=== PATIENT | female | born 1960 | race American Indian/Alaskan Native ===

== ENCOUNTER 2019-09-18 14:34 | Emergency (ER) | payer SELFPAY ==
--- NOTE | 2019-09-18 17:11 | XRay Report ---
CHEST 1 VIEW 1654 INDICATION / CLINICAL INFORMATION: Chest pressure and shortness of breath, history of hypertension. COMPARISON: None available. FINDINGS: SUPPORT DEVICES: None HEART / MEDIASTINUM: No significant abnormality. LUNGS / PLEURA: No significant pulmonary or pleural abnormality. No pneumothorax. ADDITIONAL FINDINGS: No significant additional findings. IMPRESSION: No significant acute abnormality Signer Name: Ayo Dixon MD Signed: 09/18/2019 5:06 PM Workstation Name: [id number]
[2019-09-18] MEDS ORDERED: ONDANSETRON 4 MG/2 ML INJ IV ONE (18:02)
[2019-09-18] MEDS ORDERED: SODIUM CHLORIDE 0.9% 1000 ML 1,000 ML IV ONE (18:02)
[2019-09-18] MEDS ORDERED: MORPHINE 2 MG/1 ML INJ IV ONE (18:02)
--- NOTE | 2019-09-18 18:06 | Emergency Department Report ---
ED Abdominal Pain HPI - General Chief Complaint: Chest Pain Stated Complaint: CHEST PAIN,ABD PAIN Time Seen by Provider: 09/18/19 17:38 Source: patient Mode of arrival: Ambulatory Limitations: No Limitations - History of Present Illness Initial Comments: 59-year-old female history of hypertension presents to ED with abdominal pain since yesterday. Patient states pain is periumbilical and radiates upward into her chest. She reports nausea and vomiting, denies diarrhea. Denies dysuria, reports urinary frequency. Patient denies any sick contacts. States pain is worse with eating. Unable to keep anything down. MD Complaint: abdominal pain -: Last night Location: periumbilical Radiation: epigastric, chest Migration to: no migration Severity: moderate Quality: cramping Consistency: constant Improves With: nothing Worsens With: eating, vomiting Associated Symptoms: nausea, vomiting. denies: diarrhea, fever, dysuria - Related Data Previous Rx's Medication Instructions Recorded Last Taken Type Dicyclomine [Bentyl] 20 mg PO QID PRN #20 tablet 09/18/19 Unknown Rx Ondansetron [Zofran Odt] 4 mg PO Q8HR PRN #20 tab.rapdis 09/18/19 Unknown Rx Allergies Allergy/AdvReac Type Severity Reaction Status Date / Time No Known Allergies Allergy Unverified 09/18/19 14:42 ED Review of Systems ROS: Stated complaint: CHEST PAIN,ABD PAIN Other details as noted in HPI Comment: All other systems reviewed and negative Constitutional: denies: chills, fever Gastrointestinal: abdominal pain, nausea, vomiting. denies: diarrhea ED Past Medical Hx - Past Medical History Previous Medical History?: Yes Hx Hypertension: Yes - Surgical History Past Surgical History?: No - Social History Smoking Status: Never Smoker Substance Use Type: None - Medications Home Medications: Home Medications Medication Instructions Recorded Confirmed Last Taken Type Dicyclomine [Bentyl] 20 mg PO QID PRN #20 tablet 09/18/19 Unknown Rx Ondansetron [Zofran Odt] 4 mg PO Q8HR PRN #20 tab.rapdis 09/18/19 Unknown Rx ED Physical Exam - General Limitations: No Limitations General appearance: alert, in no apparent distress - Head Head exam: Present: atraumatic, normocephalic - Eye Eye exam: Present: normal appearance, EOMI - ENT ENT exam: Present: mucous membranes moist - Neck Neck exam: Present: normal inspection - Respiratory Respiratory exam: Present: normal lung sounds bilaterally. Absent: respiratory distress - Cardiovascular Cardiovascular Exam: Present: regular rate, normal rhythm - GI/Abdominal GI/Abdominal exam: Present: soft, distended (mildy), tenderness (periumbical, suprapubic ) - Extremities Exam Extremities exam: Present: normal inspection - Neurological Exam Neurological exam: Present: alert, oriented X3 - Psychiatric Psychiatric exam: Present: normal affect, normal mood - Skin Skin exam: Present: warm, dry, intact, normal color ED Course Vital Signs 09/18/19 09/18/19 09/18/19 14:51 19:54 19:55 Temperature 98.4 F Pulse Rate 86 Respiratory 16 18 Rate Blood Pressure 153/92 O2 Sat by Pulse 99 96 Oximetry 09/18/19 09/18/19 09/18/19 20:01 20:31 20:49 Temperature Pulse Rate Respiratory Rate Blood Pressure 182/77 187/83 137/58 O2 Sat by Pulse 93 91 98 Oximetry 09/18/19 09/18/19 09/18/19 21:01 21:15 21:31 Temperature Pulse Rate Respiratory Rate Blood Pressure 174/85 148/72 176/92 O2 Sat by Pulse 91 91 94 Oximetry 09/18/19 09/18/19 21:45 22:00 Temperature Pulse Rate Respiratory Rate Blood Pressure 168/87 141/118 O2 Sat by Pulse 97 94 Oximetry ED Medical Decision Making - Lab Data Result diagrams: 09/18/19 18:06 09/18/19 18:06 - EKG Data -: EKG Interpreted by Ms EKG shows normal: sinus rhythm, axis, intervals, QRS complexes, ST-T waves Rate: normal - EKG Data Interpretation: no acute changes - Radiology Data Radiology results: report reviewed, image reviewed - Medical Decision Making 59-year-old female with abdominal pain radiating up into the chest. EKG and troponin normal. Vital signs stable. Patient feeling much better following IV fluids, morphine, and Zofran. Labs unremarkable. CT abdomen and pelvis was performed that shows no acute abnormalities. Patient is feeling much better this time and feels comfortable with discharge home. Prescriptions given. Outpatient follow-up advised. Return precautions given. - Differential Diagnosis gastroenteritis, appendicitis, pancreatitis, gastritis Critical care attestation.: If time is entered above; I have spent that time in minutes in the direct care of this critically ill patient, excluding procedure time. ED Disposition Clinical Impression: Acute abdominal pain Disposition: DC-01 TO HOME OR SELFCARE Is pt being admited?: No Condition: Stable Instructions: Abdominal Pain (ED) Prescriptions: Dicyclomine [Bentyl] 20 mg PO QID PRN #20 tablet PRN Reason: abdominal pain Ondansetron [Zofran Odt] 4 mg PO Q8HR PRN #20 tab.rapdis PRN Reason: Vomiting Referrals: PRIMARY CARE, [Primary Care Provider] - 3-5 Days [facility] [Provider Group] - 3-5 Days Time of Disposition: 21:52
[2019-09-18 18:15] LABS: Basophils # (Auto) 0.1 K/mm3 (0.0-0.1); Basophils % (Auto) 1.2 % (0.0-1.8); Hematocrit 43.4 % (30.3-42.9); Hemoglobin 14.5 gm/dl (10.1-14.3); Lymphocytes # (Auto) 1.7 K/mm3 (1.2-5.4); Lymphocytes % (Auto) 16.5 % (13.4-35.0); Mean Corpuscular HGB Conc 33 % (30-34); Mean Corpuscular Volume 92 fl (79-97); Monocytes # (Auto) 0.3 K/mm3 (0.0-0.8); Monocytes % (Auto) 2.6 % (0.0-7.3); Platelet Count 225 K/mm3 (140-440); Red Blood Count 4.71 M/mm3 (3.65-5.03); Red Cell Distribution Width 12.9 % (13.2-15.2)
[2019-09-18 18:36] LABS: BUN/Creatinine Ratio 17; Blood Urea Nitrogen 12 mg/dL (7-17); Hemolysis Index 68
[2019-09-18 19:20] LABS: Alanine Aminotransferase 20 units/L (7-56); Albumin 4.5 g/dL (3.9-5)
[2019-09-18 19:21] LABS: Bilirubin,Direct < 0.2 mg/dL (0-0.2)
--- NOTE | 2019-09-18 20:26 | Cat Scan Report ---
CT ABDOMEN AND PELVIS WITH CONTRAST INDICATION: Abdominal pain, vomiting CONTRAST: Without IV COMPARISON: None available. All CT scans at this location are performed using CT dose reduction for ALARA by means of automated e xposure control. NOTE: Resolution is decreased and artifact is introduced by the patient's size. FINDINGS: Lung bases show mild diffuse increased interstitial markings suggesting diffuse mild pulmon abdulkadir edema. No areas of consolidation are seen. Heart is not significantly enlarged. No pneumoperitoneum is seen. No significant abdominal wall herniation is noted. Fatty infiltration of the liver is seen with mild enlargement. Liver measures 18.4 cm in diameter. No focal lesions are ob vious. Spleen appears within normal limits. No urinary obstructive changes are seen. Pancreas and umesh e ducts appear within normal limits. Multiple gallstones are seen in a contracted gallbladder without definite inflammation. No lymphadenopathy is seen. Several uterine leiomyomata are noted measuring u p to 8.2 cm. No free fluid is seen. No adnexal masses are noted. No evidence of bowel obstruction is seen. Appendix appears within normal limits. No focal inflammatory changes are seen. IMPRESSION: 1. No acute abnormalities are seen 2. Cholelithiasis 3. Possible mild interstitial pulmonary edema Signer Name: Ayo Dixon MD Signed: 09/18/2019 8:22 PM Workstation Name: [id number]
[2019-09-18 21:02] LABS: Bilirubin,Urine NEG (Negative); Blood,Urine SM (Negative); Color,Urine Straw (Yellow); Protein,Urine <15 mg/dL mg/dL (Negative); Urobilinogen,Urine < 2.0 mg/dL (<2.0)
[2019-09-18 22:10] VITALS: BP 141/118
== END 2019-09-18 22:12 | disposition home or self-care (01) ==
LOC: ED 14:34
DX: R10.33 Periumbilical pain (principal); R11.2 Nausea with vomiting, unspecified; I10 Essential (primary) hypertension
CPT/HCPCS: 36415; 71045; 74177; 80048; 80076; 81001; 83690; 84484; 85025; 93005; 93010; 96361; 96374; 96375; 99285; J2270; J2405; J7030; Q9967

== ENCOUNTER 2019-10-03 09:10 | Emergency (ER) | payer SELFPAY ==
[2019-10-03] MEDS ORDERED: ASPIRIN 325 MG TAB PO ONE (09:36)
--- NOTE | 2019-10-03 10:09 | XRay Report ---
CHEST 2 VIEWS INDICATION: Chest Pain. COMPARISON: 09/18/2019 FINDINGS: Support devices: None. Heart: Within normal limits. Lungs/pleura: No acute air space or interstitial disease. No pneumothorax. Additional findings: None. IMPRESSION: Normal chest x-ray. Signer Name: Dario Stephens Jr, MD Signed: 10/03/2019 10:05 AM Workstation Name: [id number]
[2019-10-03 10:39] LABS: Basophils # (Auto) 0.1 K/mm3 (0.0-0.1); Basophils % (Auto) 1.2 % (0.0-1.8); Eosinophils % (Auto) 0.2 % (0.0-4.3); Hematocrit 43.2 % (30.3-42.9); Hemoglobin 14.4 gm/dl (10.1-14.3); Lymphocytes # (Auto) 1.5 K/mm3 (1.2-5.4); Lymphocytes % (Auto) 19.2 % (13.4-35.0); Mean Corpuscular HGB Conc 33 % (30-34); Mean Corpuscular Volume 91 fl (79-97); Monocytes # (Auto) 0.2 K/mm3 (0.0-0.8); Monocytes % (Auto) 2.8 % (0.0-7.3); Platelet Count 279 K/mm3 (140-440); Red Blood Count 4.76 M/mm3 (3.65-5.03); Red Cell Distribution Width 12.7 % (13.2-15.2)
[2019-10-03 11:04] LABS: BUN/Creatinine Ratio 12; Blood Urea Nitrogen 11 mg/dL (7-17); Calcium 9.9 mg/dL (8.4-10.2); Hemolysis Index 8
[2019-10-03] MEDS ORDERED: KETOROLAC 30 MG/1 ML INJ IM ONE (12:13)
--- NOTE | 2019-10-03 13:31 | Emergency Department Report ---
ED General Adult HPI - General Chief complaint: Chest Pain Stated complaint: CHEST PAIN/STOMACH PAIN/VOMIT Time Seen by Provider: 10/03/19 11:41 Source: patient Mode of arrival: Ambulatory Limitations: No Limitations - History of Present Illness Initial comments: 59-year-old female was here on September 18. She states that she is back for recurrent symptoms. As far as I can tell she has postprandial abdominal pain. She states that sometimes that she has chest pain which she is really not here for that. It is not listed that she has type 2 diabetes. However, she is indeed taking I presume metformin for that. She is aware that she is diabetic and is taking medication. There is some language difficulty but it is not limiting. She states that her testing on September 18 was negative. Upon review of her records she was found to have cholelithiasis. She is not aware of that. It does appear that was not listed as a diagnosis. She did not follow up on this. She hasn't followed up with a primary care physician either. -: Gradual, week(s), month(s) Location: abdomen Severity scale (0 -10): 5 Quality: aching Consistency: intermittent Improves with: none Worsens with: eating Associated Symptoms: denies other symptoms, chest pain (intermittent not current) - Related Data Previous Rx's Medication Instructions Recorded Last Taken Type Dicyclomine [Bentyl] 20 mg PO QID PRN #20 tablet 09/18/19 Unknown Rx Ondansetron [Zofran Odt] 4 mg PO Q8HR PRN #20 tab.rapdis 09/18/19 Unknown Rx traMADoL [Ultram 50 MG tab] 50 mg PO Q6HR PRN #10 tablet 10/03/19 Unknown Rx Allergies Allergy/AdvReac Type Severity Reaction Status Date / Time No Known Allergies Allergy Unverified 09/18/19 14:42 ED Review of Systems ROS: Stated complaint: CHEST PAIN/STOMACH PAIN/VOMIT Other details as noted in HPI Constitutional: denies: chills, fever Eyes: denies: eye pain, eye discharge, vision change ENT: denies: ear pain, throat pain Respiratory: denies: cough, shortness of breath, wheezing Cardiovascular: chest pain. denies: palpitations Endocrine: no symptoms reported Gastrointestinal: abdominal pain. denies: nausea, diarrhea Genitourinary: denies: urgency, dysuria, discharge Musculoskeletal: denies: back pain, joint swelling, arthralgia Skin: denies: rash, lesions Neurological: denies: headache, weakness, paresthesias Psychiatric: denies: anxiety, depression Hematological/Lymphatic: denies: easy bleeding, easy bruising ED Past Medical Hx - Past Medical History Previous Medical History?: Yes Hx Hypertension: Yes - Surgical History Past Surgical History?: No - Social History Smoking Status: Never Smoker Substance Use Type: None - Medications Home Medications: Home Medications Medication Instructions Recorded Confirmed Last Taken Type Dicyclomine [Bentyl] 20 mg PO QID PRN #20 tablet 09/18/19 Unknown Rx Ondansetron [Zofran Odt] 4 mg PO Q8HR PRN #20 tab.rapdis 09/18/19 Unknown Rx traMADoL [Ultram 50 MG tab] 50 mg PO Q6HR PRN #10 tablet 10/03/19 Unknown Rx ED Physical Exam - General Limitations: No Limitations General appearance: alert, in no apparent distress - Head Head exam: Present: atraumatic, normocephalic - Eye Eye exam: Present: normal appearance. Absent: scleral icterus - ENT ENT exam: Present: mucous membranes moist - Neck Neck exam: Present: normal inspection. Absent: tenderness, meningismus - Respiratory Respiratory exam: Present: normal lung sounds bilaterally. Absent: respiratory distress - Cardiovascular Cardiovascular Exam: Present: regular rate, normal rhythm. Absent: systolic murmur, diastolic murmur, rubs, gallop - GI/Abdominal GI/Abdominal exam: Present: soft, tenderness (mild right upper quadrant tenderness negative McBurney's), normal bowel sounds. Absent: distended, guarding, rebound, rigid, organomegaly, mass, bruit, pulsatile mass, hernia - Extremities Exam Extremities exam: Present: normal inspection - Back Exam Back exam: Present: normal inspection. Absent: CVA tenderness (R), CVA tenderness (L) - Neurological Exam Neurological exam: Present: alert, oriented X3, CN II-XII intact. Absent: motor sensory deficit - Psychiatric Psychiatric exam: Present: normal affect, normal mood - Skin Skin exam: Present: warm, dry, intact, normal color. Absent: rash ED Course Vital Signs 10/03/19 10/03/19 10/03/19 09:14 09:35 11:06 Temperature 98.8 F 98.8 F Pulse Rate 78 72 Respiratory 18 16 16 Rate Blood Pressure 133/65 133/65 O2 Sat by Pulse 99 100 Oximetry 10/03/19 14:27 Temperature 98.2 F Pulse Rate 74 Respiratory 20 Rate Blood Pressure 133/65 O2 Sat by Pulse 99 Oximetry - Reevaluation(s) Reevaluation #1: Patient resting comfortably with no complaints of pain. I have explained to the diagnosis of cholelithiasis. I've explained referrals. She does need further evaluation of her chest pain which is really not a current complaint in the outpatient setting. I will refer her to surgery, cardiology, [facility]. 10/03/19 15:14 ED Medical Decision Making - Lab Data Result diagrams: 10/03/19 10:20 10/03/19 10:20 Laboratory Results - last 24 hr 10/03/19 10/03/19 10:20 10:20 WBC 7.6 RBC 4.76 Hgb 14.4 H Hct 43.2 H MCV 91 MCH 30 MCHC 33 RDW 12.7 L Plt Count 279 Lymph % (Auto) 19.2 Mellette % (Auto) 2.8 Eos % (Auto) 0.2 Baso % (Auto) 1.2 Lymph # 1.5 Mellette # 0.2 Eos # 0.0 Baso # 0.1 Seg Neutrophils % 76.6 H Seg Neutrophils # 5.8 Sodium 134 L Potassium 4.1 Chloride 93.7 L Carbon Dioxide 20 L Anion Gap 24 BUN 11 Creatinine 0.9 Estimated GFR > 60 BUN/Creatinine Ratio 12 Glucose 225 H Calcium 9.9 Troponin T < 0.010 - EKG Data -: EKG Interpreted by Me EKG shows normal: sinus rhythm, axis, intervals, QRS complexes, ST-T waves Rate: normal - EKG Data Interpretation: other (QS in V2, no evidence of acute ischemia) - Radiology Data Radiology results: report reviewed (chest x-ray no acute process, cholelithiasis without cholecystitis or choledocholithiasis ) Critical care attestation.: If time is entered above; I have spent that time in minutes in the direct care of this critically ill patient, excluding procedure time. ED Disposition Clinical Impression: Atypical chest pain Cholelithiasis Qualifiers: Cholelithiasis location: gallbladder Cholecystitis presence: without cholecystitis Biliary obstruction: without biliary obstruction Qualified Code(s): K80.20 - Calculus of gallbladder without cholecystitis without obstruction Abdominal pain Qualifiers: Abdominal location: upper abdomen, unspecified Qualified Code(s): R10.10 - Upper abdominal pain, unspecified Disposition: TO HOME OR SELFCARE Is pt being admited?: No Does the pt Need Aspirin: No Condition: Stable Instructions: Chest Pain (ED) Additional Instructions: Further evaluation with the referral doctors is recommended. Rx as needed for pain. Return any acute chest pain, significant abdominal pain, fever, vomiting or any acute change or worsening. Prescriptions: traMADoL [Ultram 50 MG tab] 50 mg PO Q6HR PRN #10 tablet PRN Reason: Pain Referrals: ESTEPHANIA KYLE MD [Staff Physician] - 3-5 Days CLAUDIO COHN MD [Staff Physician] - 3-5 Days PRIMARY CARE, [Primary Care Provider] - 2-3 Days Time of Disposition: 15:17
--- NOTE | 2019-10-03 14:02 | Ultrasound Report ---
ABDOMINAL ULTRASOUND LIMITED (RIGHT UPPER QUADRANT) HISTORY: Abdominal pain COMPARISON: CT abdomen and pelvis with contrast 09/18/2019 TECHNIQUE: Multiple real-time ultrasonographic grayscale images were obtained of the right upper abdo men. FINDINGS: Pancreas: Unremarkable. Liver: Normal. Gallbladder: Partially contracted gallbladder with multiple shadowing calculi. The gallbladder wall m easures 2 mm. The gallbladder is surrounded by echogenic fat. No pericholecystic fluid. Common bile duct: 4 mm. Right kidney: No significant abnormality. No hydronephrosis. Kidney measures 10.8 cm. Additional findings: None. IMPRESSION: 1. Cholelithiasis but no signs of acute cholecystitis. 2. The appearance of the gallbladder is unchanged compared to the recent CT. 3. No evidence of choledocholithiasis. Signer Name: Moy Hair MD Signed: 10/03/2019 1:58 PM Workstation Name: [id number]
[2019-10-03 15:46] VITALS: BP 131/70
== END 2019-10-03 15:45 | disposition home or self-care (01) ==
LOC: ED 09:10
DX: K80.20 Calculus of gallbladder without cholecystitis without obstruction (principal); I10 Essential (primary) hypertension
CPT/HCPCS: 36415; 71046; 76705; 80048; 84484; 85025; 93005; 93010; 96372; 99284; J1885